=== PATIENT | male | born 1965 | race Caucasian/White ===

== ENCOUNTER 2020-12-30 08:12 | Inpatient (IN) ==
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
[~2020-12-30 08:12] MED LIST: LR 15ML/HR IV SCH
[2020-12-30] MEDS ORDERED: fentaNYL citrate 100 MCG/2 ML VIAL ONE ×2 (09:17→10:25)
[2020-12-30] MEDS ORDERED: MIDAZOLAM HCL 1 MG/ML 2ML VIAL ONE (09:17)
[2020-12-30] MEDS ORDERED: NEOSTIGMINE METHYLSULFATE 1 MG/ML 10ML VIAL ONE (09:17)
[2020-12-30] MEDS ORDERED: PROPOFOL IV EMULSION 10 MG/ML 20 ML VIAL IV ONE (09:17)
[2020-12-30] MEDS ORDERED: ONDANSETRON INJ 2 MG/ML 2 ML VIAL ONE (09:17)
[2020-12-30] MEDS ORDERED: LIDOCAINE HCL 2% 2 ML VIAL/AMP(20MG/ML) INFIL ONE (09:17)
[2020-12-30] MEDS ORDERED: ROCURONIUM BROMIDE 10 MG/ML 5 ML VIAL IV ONE ×2 (09:17→11:12)
[2020-12-30] MEDS ORDERED: GLYCOPYRROLATE 0.2 MG/ML VIAL ONE (09:17)
--- NOTE | 2020-12-30 09:28 | History & Physical Bridge Note ---
Date of Service December 30, 2020 History & Physical Bridge Note I have examined the patient, reviewed the History & Physical and in the interval since the performance of the History & Physical I have noted the following changes of clinical significance: no changes noted
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
[2020-12-30] MEDS ORDERED: ePHEDrine sulfate 50 MG/ML AMP IV PRN (09:50)
[2020-12-30] MEDS ORDERED: ATROPINE SULFATE 0.1 MG/ML 10ML SYR IV PRN (09:50)
[2020-12-30] MEDS ORDERED: PROMETHAZINE HCL 12.5 MG in SODIUM CHLORIDE 0.9% 50 ML IV PRN ×2 (09:50→14:14)
[2020-12-30] MEDS ORDERED: ONDANSETRON INJ 2 MG/ML 2 ML VIAL IV PRN ×2 (09:50→14:14)
[2020-12-30] MEDS ORDERED: METOCLOPRAMIDE HCL INJ 5 MG/ML 2 ML VIAL IV PRN ×2 (09:50→14:14)
[2020-12-30] MEDS ORDERED: BACITRACIN INJ 50,000 UNIT VIAL ONE (09:59)
[2020-12-30] MEDS ORDERED: BUPIVACAINE/EPINEPHRINE 0.5% MPF 1:200,000 30 ML VIAL ONE (09:59)
[2020-12-30] MEDS ORDERED: ceFAZolin 2,000 MG/15 ML IV PUSH IV ONE (10:24)
[2020-12-30] MEDS ORDERED: DEXAMETHASONE SOD INJ 4 MG/ML VIAL ONE (10:58)
[2020-12-30] MEDS ORDERED: DURASEAL DURAL SEALANT 5ML TOP ONE (11:35)
--- NOTE | 2020-12-30 12:12 | Operative Report ---
Post Operative Report Pre & Post Diagnosis Operation Date: 12/30/20 10:20 Pre-Op Diagnosis: Neurogenic claudication due to lumbar spinal stenosis Post-Op Diagnosis: Neurogenic claudication due to lumbar spinal stenosis Operation Date: 01/02/21 07:45 <No data on this case meets the specified criteria> I identified the patient and participated in the time-out.: Yes Procedure Operation Date: 12/30/20 10:20 Actual Procedures #1 revision lumbar decompression L3-4 L4-5 with bilateral medial facetectomies and foraminotomies. #2 posterior spinal fusion L3-4 and L4-5. #3 placed posterior instrumentation L3-4 L4-5 per #4 placement locally harvested morselized autograft in the posterior gutters. #5 placement infuse collagen sponge, master graft in the posterior lateral gutters. Surgeon Cesar Carlos, DO Typesetting Machine Tender Cami Belle Estimated Blood Loss 100 Findings See Below Patient is 5 foot 9 inches tall weighing over 108 kg with a BMI in excess of 35. The patient's body habitus did add increased technical difficulty requiring her deepest retractors longus instruments in order to perform his procedure. This added at least 25% increase to the operative time. Specimens None Indications This is a 55-year-old male who presents with above-mentioned diagnosis after failing course of nonoperative care is here for the above-mentioned procedure. Description of Procedure Patient met with identified informed consent obtained. Patient was then taken to the operative suite underwent a patient placed in a prone position Jossue table top Oswaldo frame. All bony prominences well-padded eyes inspected to ensure no external pressure placed upon the. This point the lumbar spine was prepped and draped in a sterile fashion. Sharp dissection with the assistance of Bovie cautery was performed down to and exposing the remaining lamina and transverse processes of L3-L4-L5 bilaterally. I then performed a revision decompression L3-4 L4-5 noting marked instability particularly at the L4 facet on the left. Was able to completely decompress the root vertically on the left but was markedly scarred in position secondary to the instability of the facet joint. There is obvious pars fracture bilaterally at L4. After this was complete pedicle screws were placed in all 3 L4-L5 and S1 levels bilaterally with assistance of fluoroscopy and the proper sized palmira locked in position. The transverse processes of L3-L4-L5 were then burred to subcortical bleeding bone. Infuse collagen sponge master graft local autograft was placed in the posterior lateral gutters. 15 round LEONARDO drain inserted. Incision was then closed with 1 Vicryl the fascia 2-0 Vicryl subcutaneously and 4 Monocryl for final skin closure. Steri-Strip sterile dressings placed. Patient will continue PACU stable condition. Please note spinal cord monitoring was utilized that the procedure no changes noted. Lastly Cami Belle was present at the entire procedure involved the patient positioning complex portions of the surgery and final skin closure. I attest to the content of the Intraoperative Record and any orders documented therein. Any exceptions are noted below.
[2020-12-30] MEDS ORDERED: FLOSEAL HEMOSTATIC MATRIX 10ML TOP ONE (12:15)
[2020-12-30] MEDS: fentaNYL citrate 100 MCG/2 ML VIAL IV PRN ×4 (12:36→12:51)
--- NOTE | 2020-12-30 12:50 | Fluoroscopy Report ---
FL lumbar spine 2-3V CLINICAL HISTORY: L3-L5 DECOMPRESSION AND FUSION COMPARISON STUDY: None FLUOROSCOPY TIME: 23 seconds. NUMBER OF FLUOROSCOPIC IMAGES: 2 FINDINGS: 2 intraoperative fluoroscopic spot images demonstrate postsurgical changes of an L3-L5 spin al decompression and fusion with pedicle screw fixation. IMPRESSION: Postsurgical changes of an L3-L5 spinal fusion with pedicle screws. ACT 112: Negative or not required by law. Electronically signed by: Mahamed Weber M.D. 12/30/2020 12:48 PM
[2020-12-30] MEDS: HYDROmorphone INJ 2 MG/ML SYR/VIAL IV PRN ×4 (12:56→13:11)
--- NOTE | 2020-12-30 13:12 | Anesthesiology Progress Note ---
Date of Service December 30, 2020 Anesthesia Post Procedure Vital Signs Vital Signs: Temp Pulse Pulse Resp BP BP Pulse Ox 12/30/20 13:00 78 16 98/53 L 95 12/30/20 12:50 73 16 112/55 L 95 12/30/20 12:40 73 16 111/76 95 12/30/20 12:30 36.4 C L 75 16 105/68 97 12/30/20 08:43 37.2 C 76 18 142/83 H 95 Pain Intensity Left Thigh: Pain Intensity: 9 Transfer of Care Handoff Completed per policy Notes Mental Status: alert / awake / arousable and participated in evaluation Patient Amnestic to Procedure: Yes Nausea / Vomiting: adequately controlled Pain: adequately controlled Airway Patency, RR, SpO2: stable & adequate BP & HR: stable & adequate Hydration State: stable & adequate Anesthetic Complications: no major complications apparent
[2020-12-30] MEDS ORDERED: FAMOTIDINE 20 MG TAB PO PRN (14:14)
[2020-12-30] MEDS ORDERED: LORazepam 0.5 MG TAB PO PRN (14:14)
[2020-12-30] MEDS ORDERED: hydrOXYzine HCl 25 MG TAB PO PRN (14:14)
[2020-12-30] MEDS ORDERED: BACLOFEN 10 MG TAB PO PRN (14:14)
[2020-12-30] MEDS ORDERED: DO NOT ADMINISTER FLU VACCINE PRN (14:14)
[2020-12-30] MEDS ORDERED: LORazepam 0.5 MG/1 ML VIAL IV PRN (14:14)
[2020-12-30] MEDS ORDERED: ONDANSETRON 4 MG OD TAB PO PRN (14:14)
[2020-12-30] MEDS ORDERED: HYDROmorphone INJ 1 MG/ML SYRINGE IV PRN (14:14)
[2020-12-30] MEDS ORDERED: ALBUTEROL HFA 8 GM INHALER INH PRN (14:14)
[2020-12-30] MEDS ORDERED: ACETAMINOPHEN 1,000 MG/100 ML VIAL IV PRN (14:14)
[2020-12-30] MEDS ORDERED: SOD PHOSPHATE/SOD BIPHOSPHATE ENEMA 132 ML BTL PR PRN (14:14)
[2020-12-30] MEDS ORDERED: DO NOT ADMINISTER PNEUMOCOCCAL VACCINE PRN (14:14)
[2020-12-30] MEDS ORDERED: NALOXONE HCL 0.4 MG/1 ML VIAL/CARP IV PRN (14:14)
[2020-12-30] MEDS ORDERED: HYDROmorphone INJ 0.5 MG/0.5 ML SYR IV PRN (14:14)
[2020-12-30] MEDS ORDERED: diphenhydrAMINE Capsule 25 MG CAP PO PRN (14:14)
[2020-12-30] MEDS ORDERED: traMADol HCL 50 MG TABLET PO PRN (14:14)
[2020-12-30] MEDS ORDERED: ALUMINUM/MAGNESIUM SUSP 30 ML UDC PO PRN (14:14)
[2020-12-30] MEDS ORDERED: MAGNESIUM HYDROXIDE SUSP 30 ML UDC PO PRN (14:14)
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
[2020-12-30] MEDS: LACTATED RINGER'S 1,000 ML IV SCH ×2 (14:34→21:08)
[2020-12-30] MEDS: GABAPENTIN 300 MG CAP PO SCH ×2 (15:20→21:09)
[2020-12-30] MEDS: KETOROLAC 30 MG/ML VIAL IV SCH ×2 (15:20→21:11)
[2020-12-30] MEDS ORDERED: LORazepam 1 MG/2 ML VIAL IV PRN (16:50)
[2020-12-30] MEDS: ceFAZolin 2000MG 2,000 MG/15 ML SYR IV SCH (17:10)
[2020-12-30] MEDS ORDERED: COUGH DROP (SUGAR FREE) LOZ 24 LOZ/1 BOX BUCCAL PRN (18:03)
[2020-12-30] MEDS: DOCUSATE SODIUM/SENNA 50/8.6MG TAB PO SCH (21:10)
[2020-12-31] MEDS: ceFAZolin 2000MG 2,000 MG/15 ML SYR IV SCH (01:41)
[2020-12-31] MEDS: KETOROLAC 30 MG/ML VIAL IV SCH ×2 (03:26→09:39)
[2020-12-31] MEDS: LACTATED RINGER'S 1,000 ML IV SCH (03:39)
[2020-12-31] MEDS: POLYETHYLENE (MIRALAX) 17 GM PACK PO SCH ×3 (05:05→17:38)
[2020-12-31 06:08] LABS: Basophils # (auto) 0.01 K/uL (0-0.2); Basophils % (auto) 0.1 %; Eosinophils # (auto) 0.01 K/uL (0-0.5); Eosinophils % (auto) 0.1 %; Hematocrit (blood only) 34.9 % (42-52); Hemoglobin 12.1 g/dL (14.0-18.0); Immature Granulocytes # (auto) 0.05 K/uL (0.00-0.02); Immature Granulocytes % (auto) 0.4 %; Lymphocytes # (auto) 1.04 K/uL (1.2-3.4); Lymphocytes % (auto) 7.6 %; Mean Corpuscular Hgb Conc 34.7 g/dL (32-36); Mean Corpuscular Volume 89.5 fL (80-100); Mean Platelet Volume 9.6 fL (7.4-10.4); Monocytes # (auto) 1.02 K/uL (0.11-0.59); Monocytes % (auto) 7.5 %; Neutrophils # (auto) 11.47 K/uL (1.4-6.5); Neutrophils % (auto) 84.3 %; Platelet Count 249 K/uL (130-400); RDW Coefficient of Variation 13.1 % (11.5-14.5); RDW Standard Deviation 42.9 fL (36.4-46.3)
[2020-12-31 06:47] LABS: BUN Creatinine Ratio 16.9 (10-20); Calcium 9.1 mg/dl (8.5-10.1); Creatinine Clr Calc Pharmacy 93.7 ml/min; Est GFR (African American) 89.5; Est GFR (Non-African American) 77.2; Potassium 3.9 mmol/L (3.5-5.1)
--- NOTE | 2020-12-31 07:49 | Orthopedic Progress Note ---
Date of Service December 31, 2020 Assessment & Plan (1) Neurogenic claudication due to lumbar spinal stenosis: Patient is doing well postoperative day #1. We will continue with pain control and GI and DVT prophylaxis. He is going to be up with physical therapy today. Anticipate discharge home tomorrow or Tuesday. Admission and Anticipated Discharge Date Admission Date: December 30, 2020 Subjective Patient was seen bedside in room 310. He is day 1 status post lumbar decompression fusion from L3-L5. He states his pain is well controlled. Overall he is doing well. No nausea. He denies any other numbness, tingling, paresthesias. Physical Exam Physical Exam: On exam he is alert and oriented. His abdomen soft nontender his calves are supple nontender. Strength and sensation are both intact his dressing is clean dry and intact. His LEONARDO drain is placed out 30 cc this shift 70 on the left. His hematocrit was 34.9 and hemoglobin was 12.1. Results & Data ([facility]) Vital Signs (Past 12 Hours) Vital Signs Temp Pulse Pulse Resp BP Pulse Ox 12/31/20 07:43 36.7 C 67 18 120/67 95 12/31/20 03:39 36.6 C 57 L 18 106/56 L 96 12/30/20 22:09 36.8 C 89 18 94/53 L 92
--- NOTE | 2020-12-31 08:02 | Anesthesiology Progress Note ---
Date of Service December 31, 2020 Anesthesia Post Procedure Vital Signs Vital Signs: Temp Pulse Pulse Resp BP BP Pulse Ox 12/31/20 07:43 36.7 C 67 18 120/67 95 12/31/20 03:39 36.6 C 57 L 18 106/56 L 96 12/30/20 22:09 36.8 C 89 18 94/53 L 92 12/30/20 19:29 36.6 C 80 18 100/59 L 95 12/30/20 18:20 16 94 12/30/20 18:10 16 89 L 12/30/20 17:53 95 12/30/20 17:31 36.7 C 82 22 113/69 94 12/30/20 16:32 36.2 C L 79 16 105/66 94 12/30/20 15:10 36.6 C 89 18 105/64 97 12/30/20 14:40 36.7 C 86 16 102/64 92 12/30/20 14:10 36.6 C 77 14 105/61 93 12/30/20 14:00 80 12 118/67 93 12/30/20 13:45 72 12 93/62 L 93 12/30/20 13:30 36.5 C 89 16 96/63 L 95 12/30/20 13:20 36.5 C 84 16 91/54 L 95 12/30/20 13:10 81 16 90/53 L 95 12/30/20 13:00 78 16 98/53 L 95 12/30/20 12:50 73 16 112/55 L 95 12/30/20 12:40 73 16 111/76 95 12/30/20 12:30 36.4 C L 75 16 105/68 97 12/30/20 08:43 37.2 C 76 18 142/83 H 95 Pain Intensity Left Thigh: Pain Intensity: 9 Lower Medial Back: Pain Intensity: 2 Notes Mental Status: alert / awake / arousable and participated in evaluation Patient Amnestic to Procedure: Yes Nausea / Vomiting: see Notes below Pain: adequately controlled Airway Patency, RR, SpO2: stable & adequate BP & HR: stable & adequate Hydration State: stable & adequate Anesthetic Complications: no major complications apparent and Pt Satisfied with anesthetic care
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
[2020-12-31] MEDS ORDERED: lisinopril 20 MG TAB PO SCH (09:00)
[2020-12-31] MEDS: PANTOprazole 40 MG TAB PO SCH (09:39)
[2020-12-31] MEDS: GABAPENTIN 300 MG CAP PO SCH ×3 (09:39→21:37)
[2020-12-31] MEDS: MULTIVITAMIN TAB PO SCH (09:39)
[2020-12-31] MEDS: ATORVASTATIN 10 MG TAB PO SCH (09:39)
[2020-12-31] MEDS: ACETAMINOPHEN 500 MG TAB PO PRN (16:56)
[2020-12-31] MEDS: oxyCODONE HCL IR 5 MG TAB (IMMEDIATE RELEASE) PO PRN ×2 (16:57→23:14)
[2020-12-31] MEDS: DOCUSATE SODIUM/SENNA 50/8.6MG TAB PO SCH (21:37)
[2021-01-01] MEDS: POLYETHYLENE (MIRALAX) 17 GM PACK PO SCH ×2 (00:56→05:53)
[2021-01-01 06:00] LABS: Hemoglobin 11.5 g/dL (14.0-18.0); Mean Corpuscular Hemoglobin 30.6 pg (25-34); Mean Corpuscular Hgb Conc 33.8 g/dL (32-36); Mean Corpuscular Volume 90.4 fL (80-100); Mean Platelet Volume 9.5 fL (7.4-10.4); Platelet Count 213 K/uL (130-400); RDW Coefficient of Variation 13.1 % (11.5-14.5); RDW Standard Deviation 43.1 fL (36.4-46.3); Red Blood Count 3.76 M/uL (4.7-6.1); White Blood Count 8.14 K/uL (4.8-10.8)
[2021-01-01] MEDS: oxyCODONE HCL IR 5 MG TAB (IMMEDIATE RELEASE) PO PRN ×2 (06:00→11:14)
[2021-01-01] MEDS: ACETAMINOPHEN 500 MG TAB PO PRN (06:01)
[2021-01-01 06:38] LABS: BUN Creatinine Ratio 14.2 (10-20); Calcium 8.8 mg/dl (8.5-10.1); Creatinine Clr Calc Pharmacy 122.2 ml/min; Est GFR (African American) 114.6; Est GFR (Non-African American) 98.9; Potassium 4.2 mmol/L (3.5-5.1)
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
[2021-01-01] MEDS: PANTOprazole 40 MG TAB PO SCH (09:04)
[2021-01-01] MEDS: ATORVASTATIN 10 MG TAB PO SCH (09:04)
[2021-01-01] MEDS: GABAPENTIN 300 MG CAP PO SCH (09:04)
[2021-01-01] MEDS: MULTIVITAMIN TAB PO SCH (09:04)
--- NOTE | 2021-01-01 09:44 | Discharge Summary ---
Date of Service January 01, 2021 Admission HPI Per Admitting Provider This is a 55-year-old male who presents with chronic persistent back and bilateral leg pain. After failing course of nonoperative care is here for surgical invention. Principal Diagnosis Lumbar spinal stenosis with radiculopathy Discharge Data Allergies Allergy/AdvReac Type Severity Reaction Status Date / Time No Known Allergies Allergy Verified 12/30/20 08:38 Consultations 12/30/20 14:14 Consult Case Management - Discharge Planning Routine Consult Hospitalist Routine Procedures Performed Operation Date: 12/30/20 10:20 Actual Procedures p L3-L5 Decompression Fusion, Spinal Cord Monitoring(Not Applicable) - Cesar Carlos DO Operation Date: 01/02/21 07:45 <No data on this case meets the specified criteria> Ordered Studies 12/30/20 10:20 FL fluoroscopy <1hr Routine FL lumbar spine 2-3V Routine Hospital Course (1) Neurogenic claudication due to lumbar spinal stenosis: Patient with revision decompression fusion tolerated so was taken to o rthopedic for postop. Postop day 1 is up and ambulating postop day #2 pain well controlled leg symptoms improved LEONARDO drain decreasing appropriately. Excellent strength testing. Subsequently discharged home. Discharge orders and instructions found in chart for further review. Total Time Total Time Spent Total Time Spent (In Minutes): 20 minutes Discharge Plan Discharge Items Patient Disposition: Home - Self-Care Reason For Visit: Unspecified Thoracic, Thoracolumbar and Lumbosacra Discharge Diagnosis: Lumbar spinal stenosis with neurogenic claudication Activity: As commented below Non-emergency contact: Primary Care Provider Call non-emergency contact if: you have any medication questions Follow-up/Referrals: Shawanda Herrera [Other] - 01/07/21 11:40 am (NEW PATIENT APPOINTMENT TO ESTABLISH CARE) Nabeel Pan [Primary Care Provider] - Diet: Regular Addtl Attending Provider Instructions: You have a new appointment scheduled on 01/07 at 11:40am with Dr. Herrera to establish with [facility] primary care. Pending Studies at Discharge: No Stand-Alone Forms: My [employer], Smoking Cessation Medications and DC Order Prescriptions: New gabapentin [Neurontin] 600 mg tablet 300 mg PO TID Qty: 90 RF: 0 tramadol 50 mg tablet 50 mg PO Q6H PRN (Reason: pain, moderate) Qty: 30 RF: 0 oxycodone 5 mg tablet 5 mg PO Q6H PRN (Reason: pain, severe) Qty: 30 RF: 0 Continued ibuprofen [Advil] 200 mg Tablet 400 mg PO TID PRN (Reason: Pain) RF: 0 gabapentin 300 mg Capsule 300 mg PO TID PRN (Reason: Pain) RF: 0 atorvastatin 10 mg Tablet 10 mg PO QAM RF: 0 lisinopril 20 mg Tablet 20 mg PO QAM RF: 0 baclofen 10 mg Tablet 10 mg PO TID RF: 0 multivitamin Tablet 1 tab PO QAM RF: 0 albuterol sulfate [Ventolin HFA] 90 mcg/actuation Hfa Aerosol Inhaler 2 puff INHALATION QID PRN (Reason: Wheezing) RF: 0 omega 3-cpp-lte-fish oil [Fish Oil] 1,000 mg (120 mg-180 mg) Capsule 1 cap PO QAM RF: 0 esomeprazole magnesium 20 mg Capsule,Delayed Release(Dr/Ec) 20 mg PO QAM RF: 0 Discharge Orders: Discharge Order (Routine); Ordered 01/01/21 Ordered By: Cesar Pedrzaa/Other Patient Handouts: Laminectomy, Spinal Fusion, Laminectomy Laminotomy Recovery, Discharge Instructions for ..., Discharge Instructions for Laminectomy Admission Data Admit Date/Time: 12/30/20 13:00 Attending Provider: Cesar Carlos Admit Provider: Cesar Carlos Primary Care Provider: Nabeel Pan Other Providers: Pablito Marley
[2021-01-01] MEDS ORDERED: bisacodyL 10 MG SUPP PR PRN (12:14)
== END 2021-01-01 13:24 | disposition home or self-care (01) | DRG 460 ==
LOC: ASU 08:12 → 3E 13:00